=== PATIENT | male | born 1980 | race Two or more races ===

== ENCOUNTER 2022-11-03 17:45 | Emergency (ER) | payer BC, MEDICAID, OTHER ==
[~2022-11-03] VITALS: Ht 175.3 cm; Wt 100.0 kg
[~2022-11-03 17:45] MED LIST: PROVENTIL
[2022-11-03 18:47] VITALS: BP 139/84; PULSE 97; RESP 20; TEMP 97.9; O2SAT 95
[2022-11-03] MEDS ORDERED: IBUP-1455 PO (19:08)
== END 2022-11-03 19:17 | disposition home or self-care (01) ==
LOC: ER 17:45
DX: S83.92XA Sprain of unspecified site of left knee, initial encounter (principal); J45.909 Unspecified asthma, uncomplicated; X50.1XXA Overexertion from prolonged static or awkward postures, initial encounter; Y93.89 Activity, other specified; Y92.89 Other specified places as the place of occurrence of the external cause; Y99.8 Other external cause status
CPT/HCPCS: 73562